=== PATIENT | male | born 1990 | race Caucasian/White ===

== ENCOUNTER 2017-06-08 20:39 | Emergency (ER) | payer OTHER ==
--- NOTE | 2017-06-08 21:28 | ER Document Report ---
HPI - HPI Patient complains to provider of: Dog bite Pain Level: 2 Context: Patient is a 26-year-old male who presents emergency department complaining of a dog bite to the left volar surface of the wrist prior to arrival. Patient states he was breaking up a fight between his dog and his cat. Patient states that it was his dog who is vaccinated. Denies any numbness or tingling distal to the injury, weakness or pain. Tetanus is up-to-date. 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 EXTREMITIES: Moves all 4 extremities spontaneously. No edema, radial pulses 2/4 bilaterally. No cyanosis. Wrist nontender and full range of motion. Elbow nontender and full range of motion NEUROLOGICAL: Alert and oriented x4. Normal speech. Sensation intact. 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 PSYCH: Normal affect, normal mood. SKIN: Warm, dry, normal turgor. No rashes or lesions noted. Puncture wound noted on the volar surface of the left forearm proximal to the wrist. No active bleeding - INFECTION CONTROL TRAVEL OUTSIDE OF THE [place] IN LAST 30 DAYS: Yes - [place] - RESPIRATORY O2 Sat by Pulse Oximetry: 96 Course - Re-evaluation Re-evalutation: 06/08/17 21:44 Patient is a 26-year-old male who is hemodynamically stable, no acute distress and afebrile. Patient declining an x-ray at this time. Low clinical suspicion for crush injury given no reciprocal bite silva on the dorsal side of the forearm. Wound was irrigated with Betadine and saline. Patient to increase his doxycycline dose to 20 mg a day for the next 10 days and otherwise [place] - Vital Signs Vital signs: Temp Pulse Resp BP Pulse Ox 98.8 F 94 18 147/72 H 96 06/08/17 20:56 06/08/17 20:56 06/08/17 20:56 06/08/17 20:56 06/08/17 20:56 Discharge - Discharge Clinical Impression: Dog bite Qualifiers: Encounter type: initial encounter Qualified Code(s): W54.0XXA - Bitten by dog, initial encounter Condition: Good Disposition: HOME, SELF-CARE Instructions: Animal Bites ([facility]) Additional Instructions: Please start taking doxycycline 100 mg twice daily for the next 10 days to prevent any infection at your dog bite site.
[2017-06-08 22:04] VITALS: BP 133/71
== END 2017-06-08 22:03 | disposition home or self-care (01) ==
LOC: ER 20:39
DX: S61.552A Open bite of left wrist, initial encounter (principal); W54.0XXA Bitten by dog, initial encounter
CPT/HCPCS: 99283